=== PATIENT | female | born 2000 | race Hispanic/Latino ===

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

== ENCOUNTER 2019-12-31 15:42 | Inpatient (IN) | payer MEDICAID, OTHER, SELFPAY ==
[2019-12-31 16:12] VITALS: BMI 32.5
[2019-12-31] MEDS ORDERED: NS / Oxytocin 40 units/1000ml 1,000 ML IV PRN (16:18)
[2019-12-31] MEDS ORDERED: Promethazine HCl 25 MG/ML VIAL IM PRN (16:18)
[2019-12-31] MEDS ORDERED: Ondansetron PF 4 MG/2 ML Vial IVP PRN (16:18)
[2019-12-31] MEDS ORDERED: Lidocaine 1% (PF) 30 ML VIAL SC PRN (16:18)
[2019-12-31] MEDS ORDERED: hydrALAZINE 20 MG/ML VIAL SLOW IVP PRN (16:18)
[2019-12-31] MEDS: Lactated Ringer's 1,000 ML IV SCH (16:29)
[2019-12-31] MEDS ORDERED: Penicillin G Potassium 5 MILL.UNITS in Sodium Chloride 0.9% 100 ML IVPB SCH (16:30)
--- NOTE | 2019-12-31 16:45 | PDOC.FPROB ---
FMR OB H&P: Medications - Current Home Medications: Medication Instructions Recorded Confirmed Type Vit Calc,Iron,Folic 1 each PO DAILY 04/04/18 12/31/19 History [ Vitamins] Allergies/Adverse Reactions: Allergies Allergy/AdvReac Type Severity Reaction Status Date / Time No Known Allergies Allergy Verified 04/04/18 12:18 FMR OB H&P: Vital Signs - Maternal Vital signs: Vital Signs - First Documented Temp Pulse Resp BP 98.2 F 102 H 18 121/74 12/31/19 16:01 12/31/19 16:01 12/31/19 16:01 12/31/19 16:01 FMR OB H&P: A/P - Problem List (1) Current Visit: Yes Status: Acute Discussion: Date/Time: 12/31/19 1645 PCP: Pradeep- [facility] HPI: This is a at 39.2 wk who presents for labor symptoms. She states she has had contractions since about 2 am this morning and they have gotten closer together and stronger this afternoon. She states she has had some bloody show but no passage of clots. She affirms movement, denies ROM Denies VILLALTA, visual changes, SOB, or swelling. History: OB hx: x1, 3degree lac PMH: neg PSH: neg Meds: PNV, iron All: NKDA Soc Hx: denies smoking, alcohol, drugs Fam Hx: denies downs, congenital defects GBS: + Blood type: AB+ Ab screen: neg HIV: neg RPR: 1T positive RPR, neg T pall, neg on 3T Hep B: neg Rubella: immune 1 hr GTT: 157, 3 hr GTT negative GC/CT: neg REVIEW OF SYSTEMS: Gen: no fever, chills, or sweats Neuro: no numbness/tingling, no weakness, denies headache ENT: denies congestion Eyes: no visual changes Resp: denies cough, no production, no SOB, no wheeze Card: denies chest pain, no palpitations GI: denies nausea, vomiting, diarrhea : no dysuria, no hematuria Skin: no rash, no erythema Psych: denies hx anxiety/depression Vitals: T: 98.5 R: 18 BP: 123/84 P:67 at: 98% on RA PHYSICAL EXAMINATION: General: NAD, alert and oriented x3 HEENT: EOMI, normal sclera Neck: Supple. Full ROM. Heart/Cardiovascular System: RRR, Cap refill < 3 seconds, no rub, no murmur Lungs/Respiratory System: clear to auscultation bilaterally. No increased work of breathing. Room air. Abdomen/Gastro-Intestinal System: no abdominal tenderness, normal bowel sounds, Gravid Extremities: Warm extremities. No cyanosis or edema. Neuro: No gross deficits appreciated Psychiatry: Awake, Alert and cooperative with exam Skin: no lesions, no rashes Musculoskeletal: Full ROM A/P: This is a 19 yo at 39.2 by 9wk US/LMP here for labor FHT: 140 baseline, mod variability, variable decel x1, accels present [place]: q 5 min contractions Category 1 strip # - GBS positive, ppx started - SVE 4/75/-1-> 5/90/-2 after 1 hour, bulging bag - Will admit for expectant management - Not interested in epidural # Anemia of - hgb pending # + RPR, 1 T - see above likely false + - 3T neg, repeat today
[2019-12-31] MEDS ORDERED: Morphine 2 MG/ML SYRINGE SLOW IVP PRN (17:02)
[2019-12-31 17:27] LABS: Hemoglobin 13.1 g/dL (12.0-16.0); Mean Corpuscular HGB CONC 32.6 g/dL (32.0-36.0); Mean Corpuscular Hemoglobin 27.7 pg (25.0-35.0); Mean Corpuscular Volume 84.9 fL (78.0-98.0); Mean Platelet Volume 9.6 fL (7.4-10.4); Platelet Count 229 thou/uL (130-400); RBC Distribution Width 16.8 % (11.5-14.5); Red Blood Cell (RBC) Count 4.75 mill/uL (4.00-5.20); White Blood Cell (WBC) Count 10.2 thou/uL (4.8-10.8)
[2019-12-31] MEDS: Morphine 4 MG/ML VIAL IM PRN ×2 (17:45→17:55)
[2019-12-31 18:08] LABS: Syphilis Antibody Nonreactive (Nonreactive); Syphilis Antibody Index 0.05 S/CO (<1.00 Non-Reactive)
[2019-12-31 18:09] LABS: HBSAg Index 0.17 S/CO (0-0.99); Hep B Surf Ag Non-Reactive S/CO (NonReactive)
[2019-12-31] MEDS ORDERED: Penicillin G 2.5 MILL.units 2.5 MILL.UNITS in Premix Bag 1 BAG IVPB SCH (21:00)
--- NOTE | 2019-12-31 22:19 | PDOC.LDPN ---
Labor & Delivery Progress Note - Subjective Subjective: painful contractions - Objective Vital signs reviewed and normal: yes General: NAD, breathing through contractions Dilation: Station: -1 FHT: category 1, variability present [place] contractions every: 3-5mins Plan: continue plan of care -: 19 yo at 39.2 by 9wk US/LMP here for labor Category 1 strip # - GBS positive - prophylaxis initiated - - Membranes intact # Anemia of - hgb 13.1 # + RPR, 1 T - see above likely false + - 3T neg, repeat today
--- NOTE | 2019-12-31 23:17 | PDOC.LDPN ---
Labor & Delivery Progress Note - Subjective Subjective: painful contractions - Objective Vital signs reviewed and normal: yes General: breathing through contractions SVE: FHT: category 1, variability present [place] contractions every: q3-4 mins AROM: clear fluid - Assessment (1) Positive GBS test Code(s): B95.1 - STREPTOCOCCUS, GROUP B, CAUSING DISEASES CLASSD [id number] Current Visit: Yes Status: Acute (2) Current Visit: Yes Status: Acute (3) Active labor Code(s): [id number] - Current Visit: No Status: Acute (4) Primigravida in third trimester Code(s): Z34.03 - ENCNTR FOR SUPRVSN OF NORMAL FIRST PREG, THIRD TRIMESTER Current Visit: No Status: Acute Plan: continue plan of care -: 19 yo at 39.2 by 9wk US/LMP here for labor Category 1 strip # - GBS positive - prophylaxis initiated - - AROM at 2310 # Anemia of - hgb 13.1 # + RPR, 1 T - see above likely false + - 3T neg, repeat today
[2020-01-01] MEDS: NS / Oxytocin 40 units/1000ml 1,000 ML IV SCH ×2 (00:01→01:08)
--- NOTE | 2020-01-01 00:21 | PDOC.OPDEL ---
OB Operative/Delivery Note Delivery Dr/Surgeon: Jennifer/Pradeep/Sigrid Pre-Delivery Diagnosis: active labor Procedure/Post Delivery Dx: spontaneous vaginal delivery Anesthesia: none - Additional Findings/Plan Placenta delivered: spontaneous Repaired Obstetrical Laceration: none Estimated blood loss: QBL 100 Compilations/Other Findings: Delivering Physician: Jennifer/Pradeep Attending: Sigrid Procedure: Spontaneous Vaginal Delivery Anesthesia: none QBL: 100 ml Pre-op Diagnosis: 1. Term intrauterine in labor 2. Anemia of Post-op Diagnosis: 1. Term intrauterine , delivered 2. same as above Indications: A 19 y/o female presents in active labor Delivery Note: This is 19yo F @ 39.2 wks who delivered a viable M at 2353 on 01/01/20. Following an uneventful antepartum course, a vigorous M was delivered over an intact perineum in the R occipitoanterior position. Anterior Shoulder and then remainder of the body delivered. Nuchal cord x 1. The head was held down and mouth and nares were bulb suctioned. Cord clamped after delayed cord clamping and cut and cord blood collected. Placenta delivered intact in the Ba presentation with a 3 vessel cord noted. Fundal massage was performed and the fundus was firm. The cervix and vagina were inspected and found to be free of lacerations. went to nursery in good condition for routine care. Apgars were 8/9 at 1 & 5 minutes, respectively. Patient tolerated delivery well and went to after routine recovery/care. Post delivery plan: routine recovery Addendum - Attending - Attending Attestation Date/Time: 01/02/20 9023 I personally evaluated the patient and discussed the management with Dr. Rodriguez I agree with the History, Examination, Assessment and Plan documented above with any addition or exceptions noted below. I was present and supervising in the room for the second and third stage of labor.
[2020-01-01] MEDS ORDERED: Ondansetron PF 4 MG/2 ML Vial IVP PRN (00:46)
[2020-01-01] MEDS ORDERED: Docusate 100 MG CAP PO PRN (00:46)
[2020-01-01] MEDS ORDERED: hydrALAZINE 20 MG/ML VIAL SLOW IVP PRN (00:46)
[2020-01-01] MEDS ORDERED: Lanolin Ointment 7 GM TUBE TOP PRN (00:46)
[2020-01-01] MEDS ORDERED: Bisacodyl 10 MG SUPP PR PRN (00:46)
[2020-01-01] MEDS ORDERED: Milk Of Magnesia 30 ML UDCUP PO PRN ×2 (00:46)
[2020-01-01] MEDS ORDERED: Ibuprofen 800 MG TAB PO SCH ×2 (01:00→06:00)
--- NOTE | 2020-01-01 03:55 | PDOC.LDPN ---
Labor & Delivery Progress Note - Subjective Subjective: painful contractions - Objective Vital signs reviewed and normal: yes General: breathing through contractions Uterine fundus: non tender Dilation: 6 Effacement: 100% Station: -1 FHT: category 1 (mod/+ accels/no decels) Tees Toh contractions every: 4-6min Plan: continue plan of care -: sIUP - FHTs Cat 1. SVE 6/100/-1. Continue expectant management GBS positive - Receiving Penicillin Positive RPR, 1T - 3T neg, and admission RPR neg
--- NOTE | 2020-01-01 03:59 | PDOC.PP ---
Post Progress Note Post Day #: 1 Subjective: 4hrs PP. Bleeding has slowed down. Tolerated food. Feeling well, no complaints. PO intake tolerated: yes Ambulation: yes Vital Signs (12 hours) Temp Pulse Resp BP 12/31/19 16:01 98.2 F 102 H 18 121/74 Weight Weight 78.018 kg - Physical Examination General: NAD Respiratory: non-labored breathing Abdominal: + bowel sounds, lochia (less than period) Neurological: no gross focal deficits Psychiatric: A&Ox3, normal affect Result Diagrams: 12/31/19 17:14 Additional Labs: Post Labs Blood Type AB POSITIVE 12/31/19 17:14 Hep Bs Antigen Non-Reactive S/CO (NonReactive) 12/31/19 17:14 - Assessment/Plan 19yo delivered TAGA male at 39.2wks by 9wk US/LMP PPD #1 - GBS positive, received adequate ppx - Continue routine PP care Positive RPR, 1 T - 3T & admission RPR neg
[2020-01-01] MEDS: Ferrous Sulfate 325 MG TAB PO SCH ×2 (07:30→14:54)
--- NOTE | 2020-01-01 08:31 | PDOC.BPN ---
- Brief Progress Note PPD 1 [facility]yn Faculty I received check out this AM (Now) by Dr Tinoco and agree with POC. Just delivered about 8=9 hrs ago, stays in house today with possible release tomorrow. Dr Norma love delivery attending with Resident Team No acute issues
[2020-01-01] MEDS ORDERED: Adacel (T-DAP) 0.5 ML SYRINGE IM ONE (09:00)
[2020-01-01] MEDS: Ibuprofen 800 MG TAB PO SCH ×2 (09:03→16:06)
[2020-01-01] MEDS: Polyethylene Glycol 3350 17 GM Packet PO SCH (09:03)
[2020-01-01] MEDS: Prenatal Vitamin 1 TAB PO SCH (09:04)
[2020-01-01] MEDS: Docusate Calcium (SURFAK) 240 MG CAP PO SCH (09:04)
[2020-01-01] MEDS: Lactated Ringer's 1,000 ML IV SCH (11:14)
[2020-01-02] MEDS: Ibuprofen 800 MG TAB PO SCH ×2 (01:19→08:54)
[2020-01-02] MEDS: Docusate Calcium (SURFAK) 240 MG CAP PO SCH ×2 (01:19→08:54)
--- NOTE | 2020-01-02 02:27 | PDOC.PP ---
Post Progress Note Post Day #: 2 Subjective: Feeling well. Breast and bottle feeding. Ambulating, tolerating PO. Denies pain. Lochia less than period. PO intake tolerated: yes Flatus: yes Ambulation: yes Vital Signs (12 hours) Temp Pulse Resp BP Pulse Ox 01/01/20 23:59 98.3 F 81 18 113/64 98 01/01/20 19:20 98.6 F 95 16 121/72 97 01/01/20 16:15 98.1 F 87 16 103/62 97 Weight Weight 78.018 kg - Physical Examination General: NAD Cardiovascular: no m/r/g, RRR Respiratory: clear to auscultation bilaterally, non-labored breathing Abdominal: + bowel sounds Fundus firm & at: below umbilicus Neurological: no gross focal deficits Psychiatric: A&Ox3, normal affect Result Diagrams: 12/31/19 17:14 Additional Labs: Post Labs Blood Type AB POSITIVE 12/31/19 17:14 Hep Bs Antigen Non-Reactive S/CO (NonReactive) 12/31/19 17:14 - Assessment/Plan 19yo delivered TAGA male at 39.2wks by 9wk US/LMP PPD #2 - GBS positive, received adequate ppx - Continue routine PP care - Discharge timed for 1pm today after babys bili has resulted - Undecided about contraception. Plans to follow up at [facility] Positive RPR, 1 T - 3T & admission RPR neg
[2020-01-02] MEDS: Ferrous Sulfate 325 MG TAB PO SCH (07:16)
[2020-01-02 08:13] VITALS: BP 116/76; TEMP 98
[2020-01-02] MEDS: Polyethylene Glycol 3350 17 GM Packet PO SCH (08:53)
[2020-01-02] MEDS: Prenatal Vitamin 1 TAB PO SCH (08:54)
== END 2020-01-02 11:00 | disposition home or self-care (01) | DRG 807 ==
LOC: L&D/OP 15:42 → L&D 18:54 → 3SE 01-01 05:00
PROVIDERS: ADMIT Obstetrics & Gynecology; ATTEND Obstetrics & Gynecology
PROC: 10E0XZZ Delivery of Products of Conception, External Approach (ICD-10-PCS; principal; 2020-01-01)
DX: O99.824 Streptococcus B carrier state complicating childbirth (principal); Z37.0 Single live birth; O99.02 Anemia complicating childbirth; D64.9 Anemia, unspecified; Z3A.39 39 weeks gestation of pregnancy
CPT/HCPCS: 36415; 76815; 85027; 86780; 86850; 86900; 86901; 87340; 99285; J2270; J2540; J2550; J3490